=== PATIENT | female | born 1960 | race Caucasian/White ===

== ENCOUNTER → 2019-06-11 13:20 | Outpatient (CLI) | payer OTHER, SELFPAY ==
--- NOTE | 2019-06-11 13:36 | US_ITS ---
US transvaginal HISTORY: Painful intercourse ITS.REASON: LT ADNEXAL MASS,H/O FIBROID ORDERING PHYSICIAN: Wandy Hines PATIENT AGE: 59 years Comparison: None FINDINGS: The uterus is difficult to demonstrate due to calcified fibroid. Cannot adequately evaluate endometrial thickness or the uterus. The ovaries have an unremarkable appearance. Transabdominal imaging is performed showing an enlarged uterus with significant shadowing posteriorly. The fibroid appears to measure approximately 6 x 6 cm. The uterus measures approximately 10 x 7 cm. No adnexal mass. IMPRESSION: Limited evaluation of the uterus secondary to a large calcified fibroid which measures approximately 6 cm. No adnexal mass
== END ==
PROVIDERS: PCP Internal Medicine; Visit Provider Internal Medicine
DX: R19.09 Other intra-abdominal and pelvic swelling, mass and lump (principal); Z87.42 Personal history of other diseases of the female genital tract
CPT/HCPCS: 76830